=== PATIENT | male | born 2005 | race Caucasian/White ===

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

== ENCOUNTER 2023-08-07 02:10 | Emergency (ER) | payer MEDICAID, OTHER | END 2023-08-07 03:04 | disposition left against medical advice (07) | LOC: MED 02:10 | DX: H57.89 Other specified disorders of eye and adnexa (principal); Z53.21 Procedure and treatment not carried out due to patient leaving prior to being seen by health care provider ==